=== PATIENT | female | born 1980 | race Caucasian/White ===

== ENCOUNTER 2017-03-01 22:42 | Emergency (ER) | payer SELFPAY ==
[2017-03-01 22:51] VITALS: BP 145/86; PULSE 93; TEMP 98.1; BMI 37.2
--- NOTE | 2017-03-01 23:02 | PDOC ---
History of Present Illness - General History Source: Patient Exam Limitations: No Limitations - History of Present Illness Initial Comments: 03/02/17 00:23 The patient is a 36 year old female with a significant PMH of otitis media (s/p mastoid surgery 1 year ago) who presents to the emergency department with right ear pain and swelling which worsened last night. The patient reports being unable to sleep last night secondary to pain. She reports going to Urgent Care this morning and being told her white blood cell count was high, prompting her visit. The patient notes that she has a mastoidectomy surgery scheduled for next week and has been taking Clindamycin for the past [address] Mckoy instructions. The patient reports having an appointment with Dr. Silveira tomorrow on Friday morning. The patient denies chest pain, shortness of breath, headache and dizziness. Denies fever, chills, nausea, vomit, diarrhea and constipation. Denies dysuria, frequency, urgency and hematuria. Allergies: Metoclopramide HCl, Sulfonamide antibiotics Past surgical history: Right mastoid surgery. Splenectomy. Social history: Current everyday smoker. No reported alcohol or drug use. PCP: None reported. ENT: Dr. Silveira <Howard Joaquin - Last Filed: 03/02/17 00:31> <Bing Stephens - Last Filed: 03/02/17 20:01> - General Chief Complaint: Revisit, Lab Variance Stated Complaint: PCP REFERRAL, Time Seen by Provider: 03/01/17 23:02 Past History <Howard Joaquin - Last Filed: 03/02/17 00:31> - Past Medical History CVA: No COPD: No Other medical history: ITP - Surgical History Appendectomy: Yes Cholecystectomy: Yes - Suicide/Smoking/Psychosocial Hx Smoking History: Current every day smoker Number of Cigarettes Smoked Daily: 3 Information on smoking cessation initiated: No 'Breaking Loose' booklet given: 09/20/15 Hx Alcohol Use: No Drug/Substance Use Hx: No Substance Use Type: None <Bing Stephens - Last Filed: 03/02/17 20:01> - Past Medical History Allergies/Adverse Reactions: Allergies Allergy/AdvReac Type Severity Reaction Status Date / Time metoclopramide HCl Allergy Hives Verified 03/01/17 22:47 [From Reglan] Sulfa (Sulfonamide Allergy Hives Verified 03/01/17 22:47 Antibiotics) Home Medications: Ambulatory Orders Amoxicillin/Potassium Clav [Augmentin 875-125 Tablet] 1 each PO BID #28 tablet 09/20/15 Acetaminophen W/ Codeine #3 [Tylenol # 3] 1 combo PO Q4H PRN #10 tablet MDD 4 Review of Systems - Review of Systems Able to Perform ROS?: Yes Comments:: 03/02/17 00:23 GENERAL/CONSTITUTIONAL: No fever or chills. No weakness. HEAD, EYES, EARS, NOSE AND THROAT: (+) Right ear pain and swelling. No change in vision. No ear discharge. No sore throat. CARDIOVASCULAR: No chest pain or shortness of breath. RESPIRATORY: No cough, wheezing, or hemoptysis. GASTROINTESTINAL: No nausea, vomiting, diarrhea or constipation. GENITOURINARY: No dysuria, frequency, or change in urination. MUSCULOSKELETAL: No joint or muscle swelling or pain. No neck or back pain. SKIN: No rash NEUROLOGIC: No headache, vertigo, loss of consciousness, or change in strength/ sensation. ENDOCRINE: No increased thirst. No abnormal weight change. HEMATOLOGIC/LYMPHATIC: No anemia, easy bleeding, or history of blood clots. ALLERGIC/IMMUNOLOGIC: No hives or skin allergy. <Howard Joaquin - Last Filed: 03/02/17 00:31> *Physical Exam - Vital Signs Last Vital Signs Temp Pulse Resp BP Pulse Ox 98.1 F 93 H 18 145/86 99 03/01/17 22:48 03/01/17 22:48 03/01/17 22:48 03/01/17 22:48 03/01/17 22:48 - Physical Exam Comments: 03/02/17 00:31 GENERAL: Awake, alert, and fully oriented, in no acute distress HEAD: No signs of trauma EYES: PERRLA, EOMI, sclera anicteric, conjunctiva clear ENT: (+) Minimal chronic right mastoid tenderness. Auricles normal inspection, hearing grossly normal, nares patent, oropharynx clear without exudates. Moist mucosa NECK: Normal ROM, supple, no lymphadenopathy, JVD, or masses LUNGS: Breath sounds equal, clear to auscultation bilaterally. No wheezes, and no crackles HEART: Regular rate and rhythm, normal S1 and S2, no murmurs, rubs or gallops ABDOMEN: Soft, nontender, normoactive bowel sounds. No guarding, no rebound. No masses EXTREMITIES: Normal range of motion, no edema. No clubbing or cyanosis. No cords, erythema, or tenderness NEUROLOGICAL: Cranial nerves II through XII grossly intact. Normal speech, normal gait SKIN: Warm, Dry, normal turgor, no rashes or lesions noted. <Howard Joaquin - Last Filed: 03/02/17 00:31> - Vital Signs Last Vital Signs Temp Pulse Resp BP Pulse Ox 98.1 F 93 H 18 145/86 99 03/01/17 22:48 03/01/17 22:48 03/01/17 22:48 03/01/17 22:48 03/01/17 22:48 <Bing Stephens - Last Filed: 03/02/17 20:01> ED Treatment Course - LABORATORY CBC & Chemistry Diagram: 03/02/17 00:15 03/02/17 00:15 - Medications Given in the ED: ED Medications Discontinued Medications Generic Name Dose Route Start Last Admin Trade Name Alonq PRN Reason Stop Dose Admin Oxycodone/Acetaminophen 2 combo 03/02/17 00:09 03/02/17 00:22 Percocet 5/325 - PO 03/02/17 00:10 2 combo ONCE ONE Administration <Howard Joaquin - Last Filed: 03/02/17 00:31> - LABORATORY CBC & Chemistry Diagram: 03/02/17 00:15 03/02/17 00:15 <Bing Stephens - Last Filed: 03/02/17 20:01> Medical Decision Making - Medical Decision Making 03/02/17 19:57 Pt comes after she received a call from the urgent care center that she visited earlier today. She was told that she has and elevated WBC. In the ER, pt tells me that she always has a high WBC, and that she feels fine. She follows with Dr. Silveira, ENT at [facility], nad she just comes to make sure her labs are okay and that she is okay. Her exam is completely normal, and she had labs repeated in the ER to check for lab error. WBC is 17, usual for the patient. SHe has normal labs otherwise. She will be discharged with followup with [facility] for early next week as previously scheduled. Pt is taking clinda 300 QID x 3 weeks for her mastoiditis and she is scheduled to go to the OR with [facility] in the near future. <Bing Stephens - Last Filed: 03/02/17 20:01> *DC/Admit/Observation/Transfer - Attestations Scribe Attestion: 03/02/17 00:32 Documentation prepared by Howard Joaquin, acting as medical i d sales for Bing Stephens MD. <Howard Joaquin - Last Filed: 03/02/17 00:31> - Discharge Dispostion Admit: No <Bing Stephens - Last Filed: 03/02/17 20:01> Diagnosis at time of Disposition: Chronic ear pain, Abnormal laboratory test - Discharge Dispostion Disposition: HOME Condition at time of disposition: Stable - Patient Instructions Printed Discharge Instructions: DI for Mastoiditis-Adult
[2017-03-02 00:27] LABS: BASOPHIL 0.6 % (0-2.0); EOSINOPHIL 4.1 % (0-4.5); MCH 31.7 pg (25.7-33.7); MCHC 33.2 g/dl (32.0-36.0); MEAN CELL VOLUME 95.2 fl (80-96); MEAN PLT VOLUME 7.9 fl (7.5-11.1); NEUTROPHILS 35.3 % (42.8-82.8); PLATELET COUNT 438 K/MM3 (134-434); RDW 14.1 % (11.6-15.6); WHITE BLOOD COUNT 17.3 K/mm3 (4.0-10.0)
[2017-03-02 00:39] LABS: INR 0.97 (0.82-1.09)
[2017-03-02 01:06] LABS: ALBUMIN 4.3 g/dl (3.4-5.0); ANION GAP 8 (8-16); BILIRUBIN,TOTAL 0.3 mg/dL (0.2-1.0); CALCIUM 9.1 mg/dL (8.5-10.1); CO2 27 mmol/L (21-32); CREATININE 0.7 mg/dL (0.55-1.02); GLUCOSE,RANDOM 97 mg/dL (74-106); SGOT/AST 17 U/L (15-37); SGPT/ALT 97 U/L (12-78)
[2017-03-02 01:07] LABS: ALK PHOS 143 U/L (45-117)
== END 2017-03-02 01:50 | disposition home or self-care (01) ==
LOC: JER 22:42
DX: H92.09 Otalgia, unspecified ear (principal); R79.9 Abnormal finding of blood chemistry, unspecified; F17.210 Nicotine dependence, cigarettes, uncomplicated; D69.3 Immune thrombocytopenic purpura
CPT/HCPCS: 36415; 80053; 85025; 85610; 85730; 99281-25